=== PATIENT | male | born 1950 | race Caucasian/White ===

== ENCOUNTER → 2019-03-29 | Emergency (ER) | payer OTHER ==
[~2019-03-29] VITALS: Ht 170.2 cm; Wt 79.4 kg
[~2019-03-29] MED LIST: ENALAPRIL MALEA20 MG PO; GLIPIZIDE XL5 MG PO; JANUMET 50-1,01 EACH PO; MULTI-VITAMIN1 EACH PO; PROVASTATIN; [UNRECOGNIZED DRUG - OTHER]
== END | disposition home or self-care (01) ==
LOC: ER 14:23
DX: R10.13 Epigastric pain (principal)

== ENCOUNTER 2022-08-17 12:19 | Inpatient (IN) | payer OTHER ==
[~2022-08-17] VITALS: Ht 170.2 cm; Wt 83.9 kg
[2022-08-17] MEDS ORDERED: ATIVAN1 M1 PO (13:00)
--- NOTE | 2022-08-17 13:00 | NUR ---
PTE REFIERE DEBILIDAD Y OLIVER TOS DESDE HACE MAS DE DOS SEMANAS Y PEDRIDA DE PESO. SE MANTIENE EN MEETA DE ESPERA.
--- NOTE | 2022-08-17 16:39 | NUR ---
A EVALUA PTE. SE EDUCA SOBRE [place] MEDICO, REFIERE COMPRENDER. SE COLECTAN MUESTRAS DE LABORATORIO BAJO MEDIDAS ASEPTICAS. SE ADMINISTRA MEDICAMENTO DANNY ORDEN MEDICA. SE COORDINA DELMI X. PTE MANEJADA POR . PENDIENTE RE-EVALUACION MEDICA. SE NOTIFICAN ABG.
== END 2022-08-20 22:15 | disposition home or self-care (01) | DRG 194 ==
LOC: ER 12:19 → MEDI 23:04
PROVIDERS: ADMIT Specialist; ATTEND Specialist
PROC: BB24ZZZ Computerized Tomography (CT Scan) of Bilateral Lungs (ICD-10-PCS; principal; 2022-08-17)
PROC: 3E0F7GC Introduction of Other Therapeutic Substance into Respiratory Tract, Via Natural or Artificial Opening (ICD-10-PCS; 2022-08-18)
DX: J18.9 Pneumonia, unspecified organism (principal); E87.1 Hypo-osmolality and hyponatremia; N17.8 Other acute kidney failure; E11.9 Type 2 diabetes mellitus without complications; I10 Essential (primary) hypertension; Z79.4 Long term (current) use of insulin

== ENCOUNTER 2022-08-25 13:02 | Inpatient (IN) | payer OTHER ==
[~2022-08-25] VITALS: Ht 167.6 cm; Wt 81.6 kg
[~2022-08-25 13:02] MED LIST changes: +ATIVAN1 M1 PO
== END 2022-08-27 15:00 | disposition home or self-care (01) | DRG 640 ==
LOC: ER 13:02 → MEDJ 21:23
PROVIDERS: ADMIT Specialist; ATTEND Specialist
PROC: 3E0F7GC Introduction of Other Therapeutic Substance into Respiratory Tract, Via Natural or Artificial Opening (ICD-10-PCS; principal; 2022-08-25)
DX: E83.52 Hypercalcemia (principal); J18.9 Pneumonia, unspecified organism; N17.9 Acute kidney failure, unspecified; R63.0 Anorexia; Z68.29 Body mass index [BMI] 29.0-29.9, adult; E11.9 Type 2 diabetes mellitus without complications; Z79.4 Long term (current) use of insulin; I10 Essential (primary) hypertension

== ENCOUNTER 2024-09-08 09:10 | Emergency (ER) | payer OTHER ==
[~2024-09-08] VITALS: Ht 170.2 cm; Wt 88.5 kg
[2024-09-08] MEDS ORDERED: TRIAMTERENE-HC1 EAC3 (11:09)
[2024-09-08] MEDS ORDERED: METFORMIN HCL1000 M3 (11:10)
[2024-09-08] MEDS ORDERED: ATORVASTATIN CA40 MG (11:10)
[2024-09-08] MEDS ORDERED: RYBELSUS14 MG (11:10)
[2024-09-08 11:11] VITALS: BP 112/67; O2SAT 97
[2024-09-08] MEDS ORDERED: OLMESARTAN MEDO40 MG (11:11)
[2024-09-08] MEDS ORDERED: GLIPIZIDE10 MG (11:11)
[2024-09-08] MEDS ORDERED: PIOGLITAZONE HC30 MG (11:11)
[2024-09-08] MEDS ORDERED: DILTIAZEM ER300 MG (11:11)
[2024-09-08] MEDS ORDERED: GUAIFENESIN 200 MG/10 ML BLIST.PACK PO ONE ×2 (12:09→12:15)
[2024-09-08 12:19] LABS: BASO % 0.3 % (0.1-1.2); EOS # 0.18 (0.04-0.54); EOS % 1.8 % (0.7-7.0); LYMPH # 1.91 (1.18-3.74); LYMPH % 19.1 % (19.3-53.1); MEAN PLATELET VOLUME 9.40 fl (9.4-12.4); MONO # 0.84 (0.24-0.82); MONO % 8.4 % (4.7-12.5); NEUT # 7.01 (1.56-6.13); NEUT % 70.0 % (34.0-71.1); RED CELL DISTRIBUTION WIDTH 13.6 % (11.6-14.4)
[2024-09-08 12:48] LABS: COVID-19 AG NEGATIVE (NEGATIVE)
[2024-09-08 13:10] LABS: ALT/SGPT 21.0 U/L (12-78); AST/SGOT 17.0 U/L (15-37); BILIRUBIN TOTAL 0.53 mg/dL (0.3-1.2); BUN CREA RATIO 33.0 (7.0-25.0); CREATININE SERUM 1.47 mg/dL (0.70-1.30); GFR 46.57; GLOBULINA 3.8 G/DL (2.4-3.5); OSMOLALITY SERUM 295.0 MOSM/KG (275-295)
[2024-09-08 13:32] LABS: GLUCOSE FASTING 212.0 mg/dL (65-100)
[2024-09-08 13:48] LABS: URINE APPEARANCE Clear; URINE BILIRRUBIN Negative (NEGATIVE); URINE BLOOD Negative; URINE COLOR Yellow; URINE GLUCOSE Negative (NEGATIVE); URINE KETONE Negative (NEGATIVE); URINE LEUKOCYTE Negative; URINE NITRATE Negative; URINE PROTEIN Trace (NEGATIVE); URINE UROBILINOGEN 0.2 E.U./dl
[2024-09-08 13:58] LABS: URINE BACTERIA 8.4 uL (0.0-1933); URINE EPITHELIAL CELLS 1.6 uL (0.0-38.8); URINE WBC 2.1 uL (0.0-23.2)
[2024-09-08 14:04] LABS: URINE CAST 0.14 uL (0.0-1.40); URINE RBC 0.2 uL (0.0-20.8)
== END 2024-09-08 15:40 ==
LOC: ER 09:10
PROVIDERS: General Practice
DX: J10.1 Influenza due to other identified influenza virus with other respiratory manifestations (principal); Z20.822 Contact with and (suspected) exposure to COVID-19; I10 Essential (primary) hypertension; E11.9 Type 2 diabetes mellitus without complications; Z79.84 Long term (current) use of oral hypoglycemic drugs; Z91.018 Allergy to other foods